=== PATIENT | female | born 1970 | race Caucasian/White ===

== ENCOUNTER 2020-06-08 23:27 | Emergency (ER) | payer BC, OTHER, SELFPAY ==
--- NOTE | ~2020-06-08 | CT_ITS ---
EXAMINATION: CT abdomen pelvis wo con DATE: 06/09/2020 00:12 INDICATION: Right flank pain TECHNIQUE: Computed tomography (CT) of the abdomen and pelvis was performed without intravenous contr ast. The dose-length product (DLP) was 625.15 mGy-cm. Automated exposure control and iterative recons truction technique were employed. COMPARISON: None FINDINGS: The lung bases are clear. The heart size is normal. There is an 8 mm cyst of the liver dome . The spleen, pancreas, gallbladder, and adrenal glands are normal. The left kidney is unremarkable. There is a 6 mm stone in the proximal right ureter which causes moderate hydronephrosis. No additiona l urolithiasis is identified. No pathologically enlarged abdominal or pelvic lymph nodes are identifi ed. There is no free intraperitoneal gas or evidence of bowel obstruction. The appendix is normal. Th ere is mild lumbar spondylosis. IMPRESSION: 1. 6 mm stone of the proximal right ureter which causes moderate hydronephrosis. Reviewed, dictated and finalized at location A. COLOR PRESS OPERATOR IMPRESSION: 1. 6 mm stone of the proximal right ureter which causes moderate hydronephrosis .
[2020-06-08 23:31] VITALS: BP 160/86; PULSE 108; RESP 18; TEMP 36.4; O2SAT 100
--- NOTE | 2020-06-08 23:46 | ED.GENADULT ---
HPI - General Adult General Chief complaint: Abdominal Pain Stated complaint: flank pain Time Seen by Provider: 06/08/20 23:40 History of Present Illness HPI narrative: Patient is a 49-year-old female who presents to the emergency department with chief complaint of right inguinal pain and right flank pain. The patient states the pain began suddenly this evening reports that is not worsened by anything and spontaneously improved while she was on her way to the emergency department. The patient reports she has had some vomiting with it denies fever reports that she has had decreased urine output since this occurred. Patient states that she has no prior history of kidney stones denies prior medical problems denies prior surgical history denies smoking. Related Data Allergies Allergy/AdvReac Type Severity Reaction Status Date / Time cefprozil Allergy Severe UNKNOWN Verified 10/28/18 09:01 amoxicillin AdvReac Intermediate WORSENING Verified 10/28/18 09:01 SYMPTOMS Review of Systems Review of Systems: Narrative: A 10 system review of systems was completed on the patient and is negative except for what is stated in the HPI. Nursing and ancillary documentation was reviewed. PMFSH Social History Social History Gender identity (if verbalized by the patient): Female Comments Patient has negative past medical history Patient is negative past surgical history Social history the patient denies smoking Exam Narrative: Exam Narrative: GENERAL: Well-appearing, well-nourished, and in no acute distress. HEAD: Normocephalic, atraumatic. EYES: PERRLA and EOMI. ENT: Nares clear, no rhinorrhea or epistaxis. Mucous membranes moist. NECK: Supple. CHEST: Clear to auscultation. No respiratory distress. HEART: Regular rate and rhythm. No murmur heard. Normal peripheral pulses. ABDOMEN: Soft, nontender, nondistended, normal active bowel sounds. EXTREMITIES: Normal range of motion. No edema. SKIN: Warm, dry, no rash. NEURO: No focal deficits. Alert and oriented x3. PSYCH: Normal mood and affect. Course Vital Signs Vital signs: Vital Signs Temperature 36.4 C L 06/08/20 23:31 Pulse Rate 108 H 06/08/20 23:31 Respiratory Rate 18 06/08/20 23:31 Blood Pressure 160/86 H 06/08/20 23:31 Pulse Oximetry 100 06/08/20 23:31 Temperature 36.4 C L 06/08/20 23:31 Pulse Rate 108 H 06/08/20 23:31 Respiratory Rate 18 06/08/20 23:31 Blood Pressure 160/86 H 06/08/20 23:31 Pulse Oximetry 100 06/08/20 23:31 Medical Decision Making Vital Signs Vital Signs: Vital Signs Temperature 36.4 C L 06/08/20 23:31 Pulse Rate 108 H 06/08/20 23:31 Respiratory Rate 18 06/08/20 23:31 Blood Pressure 160/86 H 06/08/20 23:31 Pulse Oximetry 100 06/08/20 23:31 Temperature 36.4 C L 06/08/20 23:31 Pulse Rate 108 H 06/08/20 23:31 Respiratory Rate 18 06/08/20 23:31 Blood Pressure 160/86 H 06/08/20 23:31 Pulse Oximetry 100 06/08/20 23:31 Lab Data Result diagrams: 06/08/20 23:55 06/08/20 23:55 Labs: Lab Results 06/08/20 06/08/20 Range/Units 23:55 23:55 WBC 14.0 H (4.5-10.0) K/mm3 RBC 4.85 (4.2-5.4) M/mm3 Hgb 13.3 (12.0-15.0) g/dL Hct 40.3 (37.0-47.0) % MCV 83.1 (80-100) fl MCH 27.4 (26-34) pg MCHC 33.0 (32-36) g/dl RDW 13.2 (11.5-14.5) % Plt Count 352 (150-375) k/mm3 MPV 9.4 (7.4-10.4) fl Immature Gran % (Auto) 0.4 (0-0.5) % Neut % (Auto) 78.5 H (45.5-73.1) % Lymph % (Auto) 13.9 L (18.3-44.2) % [place] % (Auto) 6.7 (2.6-8.5) % Eos % (Auto) 0.1 (0-4.4) % Baso % (Auto) 0.4 (0.2-1.2) % Lymph # (Auto) 1.94 (0.9-3.2) K/mm3 [place] # (Auto) 0.9 H (0.1-0.6) K/mm3 Eos # (Auto) 0.0 (0-0.3) K/mm3 Baso # (Auto) 0.1 (0.0-0.1) K/mm3 Abs Immat Gran (auto) 0.06 H (0.00-0.031) K/mm3 Absolute Neuts (auto) 11.0 H (1.3-6.7) K/mm3 Absolute Nucleated RBC 0.0 (0.0-0.012) K/mm3 Nucleated RBC
[2020-06-08] MEDS: KETOROLAC 30 MG/ML VIAL (*BKC) IV PUSH (23:56)
[2020-06-08] MEDS: MORPHINE SULFATE (*CRX) 4 MG/ML INJ IV PUSH (23:57)
[2020-06-08] MEDS: ONDANSETRON INJ 4 MG/2 ML VIAL IV PUSH (23:58)
[2020-06-08] MEDS: SODIUM CHLORIDE 0.9% IV 1,000 ML 999 ML IV CONT (23:58)
--- NOTE | 2020-06-09 | PC.NURSE ---
Pt. unable to void at this time.
[2020-06-09 00:01] LABS: Basophils Absolute Auto 0.1 K/mm3 (0.0-0.1); Basophils Percent Auto 0.4 % (0.2-1.2); Eosinophils Percent Auto 0.1 % (0-4.4); Hematocrit 40.3 % (37.0-47.0); Hemoglobin 13.3 g/dL (12.0-15.0); Immature Granulocyte Absolute 0.06 K/mm3 (0.00-0.031); Immature Granulocyte Percent A 0.4 % (0-0.5); Lymphocytes Absolute Auto 1.94 K/mm3 (0.9-3.2); Lymphocytes Percent Auto 13.9 % (18.3-44.2); Mean Corpuscular Hemoglobin 27.4 pg (26-34); Mean Corpuscular Volume 83.1 fl (80-100); Mean Platelet Volume 9.4 fl (7.4-10.4); Monocytes Absolute Auto 0.9 K/mm3 (0.1-0.6); Monocytes Percent Auto 6.7 % (2.6-8.5); Neutrophils Percent Auto 78.5 % (45.5-73.1); Platelet Count Result 352 k/mm3 (150-375); Red Blood Count 4.85 M/mm3 (4.2-5.4); Red Cell Distribution Width 13.2 % (11.5-14.5)
--- NOTE | 2020-06-09 00:06 | PC.NURSE ---
Pt. to CT
[2020-06-09 00:13] LABS: Alanine Aminotransferase 23 U/L (4-35); Albumin Level 4.3 g/dL (3.5-5.1); Alkaline Phosphatase 116 U/L (38-126); Anion Gap 7 mmol/L (8-16); Aspartate Amino Transferase 29 U/L (14-36); Bilirubin,Total 0.3 mg/dL (0.2-1.3); Blood Urea Nitrogen 13 mg/dL (7-17); Calcium 9.2 mg/dL (8.4-10.2); Carbon Dioxide 23 mmol/L (22-30); Chloride 107 mmol/L (98-107); Estimated CRCL calculation 79 ml/min; Estimated Glomerular Filt Rate > 60; Glucose 131 mg/dL (65-105); Lipase 96 U/L (23-300); Potassium 4.1 mmol/L (3.4-5.0); Sodium 137 mmol/L (137-145)
--- NOTE | 2020-06-09 00:35 | PC.NURSE ---
Asked patient at 00:30 if she could provide a urine sample, she said not right now maybe in 5 to 10 minutes.
[2020-06-09 00:54] VITALS: BP 125/74; PULSE 78; RESP 14; O2SAT 97
[2020-06-09 01:38] LABS: Add Urine Microscopic? YES; Appearance Urine Turbid (Clear); Bacteria Urine Trace /hpf; Bilirubin Urine Negative (Negative); Blood Urine 3+ (Negative); Color Urine Amber (Yellow); Glucose Urine UA Negative (Negative); Ketones Urine Trace mg/dL (Negative); Leukocyte Esterase Ur Negative LEU/UL (Negative); Mucus Urine Heavy /lpf; Nitrate Urine Negative (Negative); Protein Urine 2+ mg/dL (Negative); RBC Urine >75 /hpf (0-2); Specific Grav Ur 1.024 (1.001-1.035); Squamous Epithelial Cell Urine Occasional /hpf (Few)
== END 2020-06-09 00:56 | disposition home or self-care (01) ==
PROVIDERS: Emergency Provider Emergency Medicine; PCP Family Medicine
DX: N20.0 Calculus of kidney (principal)
CPT/HCPCS: 36415; 74176; 80053; 81001; 83690; 85025; 87086; 96361; 96374; 96375; 99284; J1885; J2270; J2405; J7030

== ENCOUNTER 2020-06-09 11:16 | Outpatient (CLI) | payer BC, OTHER, SELFPAY ==
--- NOTE | ~2020-06-09 | XR_ITS ---
XR abdomen/kub 1V DATE: 06/09/2020 11:31 INDICATION: 6 non or proximal right ureteral calculus, moderate right hydronephrosis TECHNIQUE: AP projection, 2 views COMPARISON: June 08, 2020 CT abdomen pelvis FINDINGS: Previously reported 6 mm calculus overlies the proximal right ureter at the L3-4 level. No other urinary tract calcification is evident. Associated are intact. No visceromegaly is evident. The lung bases appear clear. No evidence of bowel obstruction. Included skeletal structures are unremarkable. IMPRESSION: 6 mm calcified calculus of proximal right ureter at L3-4 level Reviewed, dictated and finalized at Location A. Reviewed, dictated and finalized at location B. ING GUIDE
== END 2020-06-09 11:17 | disposition home or self-care (01) ==
PROVIDERS: PCP Family Medicine; Visit Provider Urology
DX: N20.1 Calculus of ureter (principal)
CPT/HCPCS: 74018

== ENCOUNTER 2020-06-12 06:37 | Outpatient (CLI) | payer BC, OTHER, SELFPAY ==
--- NOTE | ~2020-06-12 | XR_ITS ---
XR abdomen/kub 1V DATE: 06/12/2020 06:59 INDICATION: Right ureteral calculus TECHNIQUE: AP projection, 2 views COMPARISON: June 09, 2020 KUB FINDINGS: Previously reported approximately 6 mm calcified calculus currently overlies the right L4 t ransverse process. This has progressed a little further distally in the right ureter from the L3-4 le tono on June 09, 2020. There is a prominent amount of fecal material within the colon but no apparent bowel obstruction. The psoas shadows are intact. No visceromegaly is evident. IMPRESSION: Calcified right ureteral calculus at mid L4 level Reviewed, dictated and finalized at [facility]. Reviewed, dictated and finalized at location A. T OIL OPERATOR
== END 2020-06-12 06:38 | disposition home or self-care (01) ==
PROVIDERS: PCP Family Medicine; Visit Provider Urology
DX: N20.1 Calculus of ureter (principal)
CPT/HCPCS: 74018

== ENCOUNTER 2020-06-30 12:26 | Outpatient (CLI) | payer BC, OTHER, SELFPAY ==
--- NOTE | ~2020-06-30 | XR_ITS ---
EXAMINATION: XR abdomen/kub 1V INDICATION: Right ureteral stone TECHNIQUE: Supine views of the abdomen were obtained on 2 radiographs. COMPARISON: 06/12/2020 FINDINGS: The previously described right ureteral stone appears to project at the level of the right L5 transverse process. No additional urolithiasis is identified. There is a phlebolith of the right p dex. The bowel gas pattern is normal. IMPRESSION: 1. Previously described stone appears to project over the right L5 transverse process. Reviewed, dictated and finalized at location A. BUILDER APPRENTICE IMPRESSION: 1. Previously described stone appears to project over the right L5 transverse p rocess.
== END 2020-06-30 12:27 | disposition home or self-care (01) ==
PROVIDERS: PCP Family Medicine; Visit Provider Urology
DX: N20.1 Calculus of ureter (principal)
CPT/HCPCS: 74018

== ENCOUNTER 2020-12-03 11:49 | Observation (INO) | payer BC, OTHER, SELFPAY ==
--- NOTE | ~2020-12-03 | US_ITS ---
EXAMINATION: US pelvic complete DATE: 12/03/2020 14:57 INDICATION: Vaginal bleeding TECHNIQUE: Multiple transabdominal sonographic images of the pelvis were obtained. COMPARISON: None. FINDINGS: The uterus measures 8.1 x 3.6 x 3.9 cm. The endometrial complex not clearly visualized. The ovaries are not visualized. No evident free fluid in the pelvis. Incomplete evaluation which was terminated p rematurely with the patient returned to the emergency room due to patient feeling faint and hypotensi ve with blood pressure of 66/40. IMPRESSION: 1. Unremarkable but incomplete pelvic ultrasound which was halted due to hypotensive episode. Reviewed, dictated and finalized at location A. IMPRESSION: 1. Unremarkable but incomplete pelvic ultrasound which was halted due to hypote nsive episode.
--- NOTE | ~2020-12-03 | XR_ITS ---
EXAMINATION: XR chest 2V DATE: 12/03/2020 14:26 INDICATION: Tachycardia TECHNIQUE: PA and lateral views of the chest are obtained. COMPARISON: None available FINDINGS: The lungs are free of acute opacities. There is no pleural effusion or pneumothorax. The ca rdiomediastinal silhouette is normal. There is mild thoracic spondylosis. IMPRESSION: 1. No acute cardiopulmonary abnormality. Reviewed, dictated and finalized at location A.
[2020-12-03 11:50] VITALS: BP 140/82; PULSE 140; RESP 18; TEMP 36.3; O2SAT 99
[2020-12-03 12:23] LABS: Basophils Absolute Auto 0.1 K/mm3 (0.0-0.1); Basophils Percent Auto 0.5 % (0.2-1.2); Eosinophils Absolute Auto 0.1 K/mm3 (0-0.3); Eosinophils Percent Auto 0.7 % (0-4.4); Hematocrit 38.8 % (37.0-47.0); Immature Granulocyte Absolute 0.03 K/mm3 (0.00-0.031); Immature Granulocyte Percent A 0.3 % (0-0.5); Lymphocytes Absolute Auto 2.81 K/mm3 (0.9-3.2); Lymphocytes Percent Auto 26.3 % (18.3-44.2); Mean Corpuscular HGB Conc 33.5 g/dl (32-36); Mean Corpuscular Hemoglobin 27.2 pg (26-34); Mean Corpuscular Volume 81.2 fl (80-100); Mean Platelet Volume 9.3 fl (7.4-10.4); Monocytes Absolute Auto 0.7 K/mm3 (0.1-0.6); Monocytes Percent Auto 6.9 % (2.6-8.5); Neutrophils Percent Auto 65.3 % (45.5-73.1); Platelet Count Result 380 k/mm3 (150-375); Red Blood Count 4.78 M/mm3 (4.2-5.4); Red Cell Distribution Width 12.8 % (11.5-14.5); White Blood Count 10.7 K/mm3 (4.5-10.0)
[2020-12-03 12:38] LABS: INR 0.9; Prothrombin Time 12.2 Seconds (11.1-14.7)
[2020-12-03 12:39] LABS: Partial Thromboplastin Time 26.4 SECONDS (22.3-36.8)
[2020-12-03 12:53] LABS: Alanine Aminotransferase 20 U/L (4-35); Albumin Level 4.3 g/dL (3.5-5.1); Alkaline Phosphatase 165 U/L (38-126); Anion Gap 6 mmol/L (8-16); Aspartate Amino Transferase 26 U/L (14-36); Bilirubin,Total 0.1 mg/dL (0.2-1.3); Blood Urea Nitrogen 11 mg/dL (7-17); Calcium 9.4 mg/dL (8.4-10.2); Carbon Dioxide 22 mmol/L (22-30); Chloride 104 mmol/L (98-107); Estimated CRCL calculation 78 ml/min; Estimated Glomerular Filt Rate > 60; Glucose 176 mg/dL (65-110); Lipase 129 U/L (23-300); Potassium 3.8 mmol/L (3.4-5.0); Sodium 132 mmol/L (137-145)
--- NOTE | 2020-12-03 14:10 | ECG_ITS ---
Measurements Intervals [place] Rate: 94 P: 44 NM: 144 QRS: 35 QRSD: 73 T: 48 QT: 344 QTc: 431 Interpretive Statements SINUS RHYTHM BASELINE ARTIFACT- II, III, AVR, AVL, AVF, V1-V6 NORMAL ECG Electronically Signed On 12-03-2020 17:42:45 CDT by Dylan Martinez D.O.
--- NOTE | 2020-12-03 14:14 | ED.GENADULT ---
HPI - General Adult General Chief complaint: Vaginal Bleeding Stated complaint: UTERINE BLEEDING Time Seen by Provider: 12/03/20 12:36 Source: patient Mode of arrival: ambulatory Limitations: no limitations History of Present Illness HPI narrative: Patient presents for evaluation of vaginal bleeding. She states symptoms essentially became severe on of this past week. She is currently on hormone therapy and has been followed for last [address] Gavin, endocrinology. She initially sought services due to decreased libido and increased fatigue. She is normally on what sounds to be pellet therapy for estrogen and testosterone replacement as well as oral progesterone. She states she was getting ready to run out of progesterone in October. She called her phototypesetter operator who advised she cut her progesterone in half so that she would not run out of the medication. She did that for one day and then replenished her supply of progesterone. Therefore, she was able to resume previous dosing. She had some vaginal discharge for one day following this and some vaginal bleeding for 3-4 days. She saw her phototypesetter operator on and experienced heavy vaginal bleeding in the office. Dr Gavin told her that she was not going to replace estrogen at that time. She did replace her testosterone and was told to continue with progesterone therapy. Since that time she has gone through a tampon and a pad every hour. She is passing large clots vaginally. On Friday, she had a near syncopal episode while on the bathroom floor. She had another episode of near syncope last night. She has experienced palpitations for weeks, but denies them currently. She has experienced hot flashes without chills, chest pain or SOB. She denies any abdominal pain/cramping. She is not on blood thinners. She had two alcohol-containing beverages this past week. She is currently on [place] Thyroid and several supplements. She currently feels nauseated. She has some labs in her possession from lab draw on 11/17/20. At that time triglycerides were 196, LDL 101, CRP 5.2, homocystine 5.0, alk phos 158, TSH less than 0.01, free T4 1.4, dihydrotestosterone 8, hemoglobin 14.3, hematocrit 44, cortisol 11.1, FSH 1.3, LH 0.3, progesterone 4 and estradiol 130. Related Data Allergies Allergy/AdvReac Type Severity Reaction Status Date / Time cefprozil Allergy Severe UNKNOWN Verified 12/03/20 11:56 amoxicillin AdvReac Intermediate WORSENING Verified 12/03/20 11:56 SYMPTOMS Review of Systems Review of Systems: CONSTITUTIONAL: Reports hot flashes and fatigue. Denies fever and chills. EYES: Denies visual changes, redness, or discharge. ENT: Denies rhinorrhea, congestion, sore throat, or otalgia. CARDIOVASCULAR: Denies chest pain, palpitations, or edema. RESPIRATORY: Denies cough or dyspnea. GASTROINTESTINAL: Reports nausea without vomiting. Denies abdominal pain and diarrhea. GENITOURINARY: Reports dark vaginal discharge. Reports vaginal bleeding with passing large clots. Denies urinary symptoms. SKIN: Denies rash or itching. MUSCULOSKELETAL: Denies back pain, joint pain, or myalgia. NEUROLOGIC: Denies headache, numbness, dizziness, or weakness. PSYCHIATRIC: Denies anxiety or depression. [facility] Past Medical History Medical History Anxiety Chronic fatigue Depression Thyroid disease Family History Family History (Updated 12/03/20 @ 14:26 by VANESSA Moore, ) Mother No pertinent past medical history Social History Social History (Updated 12/03/20 @ 14:26 by VANESSA Moore, ) Alcohol intake: current Alcohol use details: rarely Substance use: never Living arrangements: with family Gender identity (if verbalized by the patient): Female Sexual Orientation (if Verbalized by the Patient): Straight or Heterosexual Spiritual care concerns: No Exam Narrative: GENERAL: Well-donna
[2020-12-03 14:46] VITALS: BP 98/66; PULSE 89; RESP 27; O2SAT 98
[2020-12-03] MEDS: SODIUM CHLORIDE 0.9% IV 1,000 ML 999 ML IV CONT ×3 (14:46→15:13)
[2020-12-03 15:19] LABS: D Dimer 0.42 ug/mL (<0.48)
[2020-12-03 15:26] VITALS: BP 117/80; PULSE 97; RESP 23; O2SAT 100
[2020-12-03 15:29] LABS: Lactic Acid Reflex 1.7 mmol/L (0.7-2.1)
[2020-12-03 15:42] LABS: Troponin I 0.014 ng/mL (0.000-0.034)
[2020-12-03 16:00] LABS: Thyroid Stimulating Hormone < 0.015 uIU/mL (0.465-4.680)
[2020-12-03 16:47] LABS: Basophils Absolute Auto 0.1 K/mm3 (0.0-0.1); Basophils Percent Auto 0.5 % (0.2-1.2); Eosinophils Absolute Auto 0.1 K/mm3 (0-0.3); Eosinophils Percent Auto 0.6 % (0-4.4); Hematocrit 36.6 % (37.0-47.0); Hemoglobin 11.7 g/dL (12.0-15.0); Immature Granulocyte Absolute 0.02 K/mm3 (0.00-0.031); Immature Granulocyte Percent A 0.2 % (0-0.5); Lymphocytes Absolute Auto 3.12 K/mm3 (0.9-3.2); Mean Corpuscular Hemoglobin 27.5 pg (26-34); Mean Corpuscular Volume 85.9 fl (80-100); Mean Platelet Volume 10.1 fl (7.4-10.4); Monocytes Absolute Auto 0.7 K/mm3 (0.1-0.6); Monocytes Percent Auto 6.5 % (2.6-8.5); Neutrophils Absolute Auto 6.2 K/mm3 (1.3-6.7); Neutrophils Percent Auto 61.2 % (45.5-73.1); Platelet Count Result 362 k/mm3 (150-375); Red Blood Count 4.26 M/mm3 (4.2-5.4); Red Cell Distribution Width 13.1 % (11.5-14.5); White Blood Count 10.1 K/mm3 (4.5-10.0)
[2020-12-03 17:01] LABS: Add Urine Microscopic? YES; Appearance Urine Cloudy (Clear); Bilirubin Urine Negative (Negative); Blood Urine 3+ (Negative); Color Urine Red (Yellow); Glucose Urine UA Negative (Negative); Ketones Urine Negative (Negative); Leukocyte Esterase Ur Negative LEU/UL (Negative); Nitrate Urine Negative (Negative); Protein Urine 2+ mg/dL (Negative); RBC Urine >75 /hpf (0-2); Specific Grav Ur 1.006 (1.001-1.035); Squamous Epithelial Cell Urine Rare /hpf (Few); Urobilinogen Urine Negative mg/dL (<2.0)
[2020-12-03 17:03] LABS: Free T4 Free Thyroxine 1.29 ng/mL (0.78-2.19)
[2020-12-03] MEDS: TRANEXAMIC ACID 1,000MG/ISO100 1,000 MG/100 ML BAG 200 MG IVPB (18:31)
[2020-12-03] MEDS: SODIUM CHLORIDE 0.9% IV 1,000 ML 125 ML IV CONT (18:54)
[2020-12-03 18:57] LABS: Hematocrit 32.3 % (37.0-47.0); Hemoglobin 10.5 g/dL (12.0-15.0)
[2020-12-03 19:17] VITALS: BP 122/78; PULSE 102; RESP 16; O2SAT 98
[2020-12-03 19:27] LABS: Troponin I < 0.012 ng/mL (0.000-0.034)
[2020-12-03 20:00] VITALS: PULSE 97
[2020-12-03 22:30] VITALS: BP 127/83; PULSE 107; RESP 18; TEMP 36.3; O2SAT 98; BMI 28.0
--- NOTE | 2020-12-03 22:53 | PM.IMCN ---
Assessment and Plan Assessment and plan (1) Abnormal uterine bleeding: Code(s): N93.9 - Abnormal uterine and vaginal bleeding, unspecified Status: Acute (2) Anxiety: Code(s): F41.9 - Anxiety disorder, unspecified Status: Acute (3) Depression: Code(s): F32.9 - Major depressive disorder, single episode, unspecified Status: Acute (4) Chronic fatigue: Code(s): R53.82 - Chronic fatigue, unspecified Status: Acute (5) Thyroid disease: Code(s): E07.9 - Disorder of thyroid, unspecified Status: Acute (6) Constipation: Code(s): K59.00 - Constipation, unspecified Status: Acute (7) Abnormal TSH: Code(s): R79.89 - Other specified abnormal findings of blood chemistry Status: Acute Additional Plan # Vaginal bleeding unknown source working second hand to evaluate. Pelvic ultrasound could not be completed but does not show any abnormality transexamic acid 1 gm given to control the bleeding. # Hypotension likely due to hypovolemia from ongoing vaginal bleed. H&H monitoring. With fluid resuscitation her blood pressure has recovered. If drops should transfuse her PRBC for acute ongoing bleed # Abnormal TSH with thyroid peroxidase antibody suggestive of autoimmune thyroiditis/Thomas's thyroiditis. Currently TSH is low suggesting hyper thyroid state. She has been on [place] thyroid will currently hold are more thyroid and advise to follow-up with endocrinology for further direction. She states symptoms have started since starting these new supplement however not able to conclude that. # Blood loss anemia as above # Chronic fatigue syndrome # Severe angelo menopausal syndrome on hormonal therapy estrogen/progesterone # DVT prophylaxis SCDs # Full code Thank you for the consult. Will follow HPI Data of Consult Consult date: 12/03/20 Requesting Physician: Shraddha Garcia MD Primary Care Provider: Teena Del Cid, Consult Narrative Narrative: Suzie Ruth is a 50 year old female who presents to the ER with ongoing vaginal bleed. The bleeding started over the past week or so however got severely worse this past when see need to constantly change her pad and tampons almost every hour. She is getting admitted under OBGYN for further treatment. Pelvic exam was attempted but was unable to be accomplished due to large amount of blood in the vaginal vault per ED note. She has been given tranexamic acid 1 gm in the ED. She was evaluated with an ultrasound off pelvis were she was taken to the ultrasound room which was unable to be completed as her blood pressure dropped to 60s over 40s and was brought her back to the ED. She has been given fluid boluses since then and has recovered on her blood pressure. She states that when she was sat up while performing the ultrasound her blood pressure dropped and she felt like she was going to pass out/black out. We were consulted for her hypotension. Laboratory evaluation in the ER revealed hemoglobin of 11.7 down from 13. Mild WBC count of 10.1 negative guaiac negative D-dimer mild hyponatremia of 132. Her TSH is less than 0.015 free T4 is within normal limits at 1.29. Chest x-ray was negative. Pelvic ultrasound was unremarkable but incomplete. She was evaluated with in her bedside. She states she has chronic fatigue syndrome related to history of Pedro [place]-Peña virus infection in the past. She a also had severe symptoms of perimenopause with early menopausal symptoms started in age of 39. She has been placed on hormonal therapy since then and has been following with Dr. Gavin Endocrinology. She states she gets a pellet therapy for estrogen and testosterone replacement which is implanted in her hips along with oral progesterone. She had not had any. Because of this hormonal therapy since past 11 years. She will get an all pelvic ultrasound with her spring inspector and has been doing okay. She also has a diagnosis
[2020-12-04] MEDS: SODIUM CHLORIDE 0.9% IV 1,000 ML 125 ML IV CONT (04:01)
[2020-12-04 05:48] VITALS: BP 122/66; PULSE 97; RESP 18; TEMP 37.1; O2SAT 98
[2020-12-04 07:13] LABS: Basophils Percent Auto 0.4 % (0.2-1.2); Eosinophils Absolute Auto 0.1 K/mm3 (0-0.3); Eosinophils Percent Auto 0.6 % (0-4.4); Hematocrit 29.1 % (37.0-47.0); Hemoglobin 9.8 g/dL (12.0-15.0); Immature Granulocyte Absolute 0.04 K/mm3 (0.00-0.031); Immature Granulocyte Percent A 0.4 % (0-0.5); Lymphocytes Absolute Auto 2.79 K/mm3 (0.9-3.2); Lymphocytes Percent Auto 26.9 % (18.3-44.2); Mean Corpuscular HGB Conc 33.7 g/dl (32-36); Mean Corpuscular Hemoglobin 27.8 pg (26-34); Mean Corpuscular Volume 82.7 fl (80-100); Mean Platelet Volume 9.1 fl (7.4-10.4); Monocytes Absolute Auto 0.6 K/mm3 (0.1-0.6); Monocytes Percent Auto 5.8 % (2.6-8.5); Neutrophils Absolute Auto 6.8 K/mm3 (1.3-6.7); Neutrophils Percent Auto 65.9 % (45.5-73.1); Platelet Count Result 310 k/mm3 (150-375); Red Blood Count 3.52 M/mm3 (4.2-5.4); Red Cell Distribution Width 13.2 % (11.5-14.5); White Blood Count 10.4 K/mm3 (4.5-10.0)
[2020-12-04 08:00] VITALS: PULSE 100
--- NOTE | 2020-12-04 08:00 | PM.IMHP ---
H&P: HPI History of Present Illness Date/Time: 12/04/20 08:00 Chief Complaint: vaginal bleeding Narrative: Suzie Ruth is a 50 year old female who presents to the ER with heavy vaginal bleed. The bleeding started over the past week or so however got severely worse this past when see need to constantly change her pad and tampons almost every hour. SHe has been on estrogen and testosterone pellets and oral progesterone for about [address] Gavin in [facility] who does pellets. Recently estrogen ones were stopped due to this bleeding episode starting. SHe is unsure of her menopause status because she had two years of just spotting in her mid 30s before starting pellets, she has had years of not bleeding on them, but also several episodes of light bleeding on them. This was the first episode of heavy bleeding. It started on , then got worse over the weekend, so presented to ED. She was evaluated with an ultrasound of pelvis were she was taken to the ultrasound room which was unable to be completed as her blood pressure dropped to 60s over 40s and was brought her back to the ED. Ovaries and endometrial stripe not completed on the US. Pelvic US per ED revealed only heavy bleeding. Started tranexamic acid in ED (IV) and she states the last 6 hours or so the bleeding has been very minimal. She was last up to bathroom 3 hours ago and states only very light bleeding, almost nothing. Hgb from 13 to 11.7 to 9.8 this am. She has ambulated without dizziness today. Also has hypothyroid, recently had meds changed around for this. Review of Systems Review of Systems: All systems reviewed & are unremarkable except as noted in HPI and below PMFSH Past Medical History Medical History Anxiety Chronic fatigue Depression Thyroid disease Family History Family History (Updated 12/03/20 @ 14:26 by VANESSA Moore, ) Mother No pertinent past medical history Social History Social History (Updated 12/03/20 @ 14:26 by VANESSA Moore, ) Smoking status: Never smoker Alcohol intake: current Alcohol use details: rarely Substance use: never Substance use type: does not use Living arrangements: with family Gender identity (if verbalized by the patient): Female Sexual Orientation (if Verbalized by the Patient): Straight or Heterosexual Spiritual care concerns: No Meds Home Medications and Allergies Home Medications Medication Instructions Recorded Confirmed Type Adult Nutritional Supplement See Rx Instructions .ROUTE .COMPLEX 12/03/20 12/03/20 History Adult Nutritional Supplement See Rx Instructions .ROUTE .COMPLEX 12/03/20 12/03/20 History Adult Nutritional Supplement See Rx Instructions .ROUTE .COMPLEX 12/03/20 12/03/20 History Adult Nutritional Supplement See Rx Instructions .ROUTE .COMPLEX 12/03/20 12/04/20 History Adult Nutritional Supplement See Rx Instructions .ROUTE .COMPLEX 12/03/20 12/04/20 History Allergy Relief (cetirizine) 10 mg PO DAILY 12/03/20 12/04/20 History [place] Thyroid 180 mg PO QAM 12/03/20 12/04/20 History Progesterone-50 150 mg PO HS 12/03/20 12/03/20 History Yonathan-E 200 mg PO DAILY 12/03/20 12/03/20 History Vitamin D3 25 mcg PO DAILY 12/03/20 12/04/20 History amitriptyline 50 mg PO HS 12/03/20 12/03/20 History escitalopram oxalate 10 mg PO DAILY 12/03/20 12/03/20 History estradiol-testosterone See Rx Instructions .ROUTE .COMPLEX 12/03/20 12/04/20 History omeprazole 20 mg PO DAILY 12/03/20 12/04/20 History spironolactone 100 mg PO DAILY 12/03/20 12/04/20 History Allergies Allergy/AdvReac Type Severity Reaction Status Date / Time cefprozil Allergy Severe UNKNOWN Verified 12/03/20 11:56 amoxicillin AdvReac Intermediate WORSENING Verified 12/03/20 11:56 SYMPTOMS Vital Signs Vital Signs - 24 hr 12/03/20 11:50 12/03/20 14:46 12/03/20 15:26 Temperature 97.3 F L Pulse Rate 140 H 89 97 Respi
[2020-12-04 08:05] VITALS: PULSE 97
--- NOTE | 2020-12-04 08:27 | PM.DS ---
DS: Admitting Diagnosis Admitting Diagnosis vaginal bleeding DS: Discharge Diagnosis Discharge Diagnosis (1) Acute blood loss anemia: Code(s): D62 - Acute posthemorrhagic anemia Status: Acute (2) Abnormal uterine bleeding: Code(s): N93.9 - Abnormal uterine and vaginal bleeding, unspecified Status: Acute (3) Abnormal TSH: Code(s): R79.89 - Other specified abnormal findings of blood chemistry Status: Acute DS: Summary Hospital Course Reason for hospitalization: hypotension with acute blood loss Hospital Course: Pt presented to the ED with heavy vaginal bleeding and dropped Hgb from 13 to 11 to 9.8. She received IV fluids and IV tranexamic acid and hypotension resolved and bleeding drastically improved. She received a hospitalist consult for thyroid issues and hypotension. She was stable for DC on HD #1. Status at Discharge Functional status at discharge: independent ambulation Overall status at discharge: patient is progressing back to baseline Time Spent with Patient Time attestation: Total time spent providing and/or coordinating discharge services: Time spent: Less than 30 minutes Exam Const: General: no acute distress Resp: Effort & Inspection: normal respiratory effort Auscultation: clear to auscultation bilaterally Cardio: Rate: tachycardic Rhythm: regular rhythm GI: GI Palp: Yes Soft to palpation Skin: General skin exam: normal color Extrem: General: normal to inspection Psych: Mental Status: mental status grossly normal Affect: normal affect DS: Data Data Completed and Pending Labs on day of discharge: Labs from last 24 hours 12/04/20 12/04/20 12/04/20 06:50 06:50 06:50 WBC 10.4 H RBC 3.52 L Hgb 9.8 L Cancelled Hct 29.1 L Cancelled MCV 82.7 MCH 27.8 MCHC 33.7 RDW 13.2 Plt Count 310 MPV 9.1 Immature Gran % (Auto) 0.4 Neut % (Auto) 65.9 Lymph % (Auto) 26.9 [place] % (Auto) 5.8 Eos % (Auto) 0.6 Baso % (Auto) 0.4 Lymph # (Auto) 2.79 [place] # (Auto) 0.6 Eos # (Auto) 0.1 Baso # (Auto) 0.0 Abs Immat Gran (auto) 0.04 H Absolute Neuts (auto) 6.8 H Absolute Nucleated RBC 0.0 Nucleated RBC % 0.0 PT INR APTT D-Dimer Sodium Pending Potassium Pending Chloride Pending Carbon Dioxide Pending Anion Gap Pending BUN Pending Creatinine Pending Estim Creat Clear Calc Pending Estimated GFR Pending Glucose Pending Lactic Acid Calcium Pending Total Bilirubin Pending AST Pending ALT Pending Alkaline Phosphatase Pending Troponin I Total Protein Pending Albumin Pending Lipase TSH Free T4 Urine Color Urine Appearance Urine pH Ur Specific [place] Urine Protein Urine Glucose (UA) Urine Ketones Ur Blood (Man) Urine Nitrate Urine Bilirubin Urine Urobilinogen Leukocyte Esterase Rfl Urine RBC Urine WBC Ur Squamous Epith Cells Blood Type Antibody Screen 12/03/20 12/03/20 12/03/20 18:48 18:48 16:35 WBC RBC Hgb 10.5 L Hct 32.3 L MCV MCH MCHC RDW Plt Count MPV Immature Gran % (Auto) Neut % (Auto) Lymph % (Auto) [place] % (Auto) Eos % (Auto) Baso % (Auto) Lymph # (Auto) [place] # (Auto) Eos # (Auto) Baso # (Auto) Abs Immat Gran (auto) Absolute Neuts (auto) Absolute Nucleated RBC Nucleated RBC % PT INR APTT D-Dimer Sodium Potassium Chloride Carbon Dioxide Anion Gap BUN Creatinine Estim Creat Clear Calc Estimated GFR Glucose Lactic Acid Calcium Total Bilirubin AST ALT Alkaline Phosphatase Troponin I < 0.012 Total Protein Albumin Lipase TSH Free T4 Urine Color Red H Urine Appearance Cloudy H Urine pH 6.0 Ur Specific [place] 1.006 Urine Protein 2+ H Urine Glucose (UA)
--- NOTE | 2020-12-04 08:29 | ADMGEN ---
This patient, Suzie Ruth, was admitted to [facility] Surg Room 307-02. Patient/family oriented to hospital policies and general routines including ID bracelet, bed and alarms, visiting hours, pain management, procedures, bathroom and other care routines, personal items, smoking policy, room service/diet, and visiting hours. Information on how to activate the Rapid Response Team has been discussed. Patient/Family are encouraged to report perceived risks to care and to ask questions if they do not understand what they are told or what they should do. Patient was plesant and cooperative through the admission process teaching back on hospital policy, call light use, medication scheduling and testing. There was no midnight H&H so lab was called at 0540. They requested that a psychological assistant be called. One was on the floor and followed the request to get an H&H as soon as possible r/t active bleeding. An approximately 4 gram clot was observed in one of the pt's voidings and ayad red blood, likely vaginal. She had no complaints of pain or dizziness while following directions to take her time during position changes.
[2020-12-04 08:30] LABS: Alanine Aminotransferase 12 U/L (4-35); Alkaline Phosphatase 132 U/L (38-126); Anion Gap 0 mmol/L (8-16); Aspartate Amino Transferase 16 U/L (14-36); Bilirubin,Total 0.1 mg/dL (0.2-1.3); Blood Urea Nitrogen 6 mg/dL (7-17); Carbon Dioxide 20 mmol/L (22-30); Chloride 113 mmol/L (98-107); Estimated CRCL calculation 120 ml/min; Estimated Glomerular Filt Rate > 60; Glucose 89 mg/dL (65-110); Potassium 4.1 mmol/L (3.4-5.0); Sodium 133 mmol/L (137-145)
[2020-12-04] MEDS: TRANEXAMIC ACID 1,000MG/ISO100 1,000 MG/100 ML BAG 200 MG IVPB (10:14)
[2020-12-04] MEDS: CHOLECALCIFEROL 1,000 UNITS TABLET 1000 UNITS PO (10:15)
[2020-12-04] MEDS: ESCITALOPRAM OXALATE 10 MG TABLET PO (10:15)
[2020-12-04] MEDS: PANTOPRAZOLE 40 MG TABLET PO (10:15)
[2020-12-04] MEDS: LORATADINE 10 MG TABLET PO (10:15)
[2020-12-04 12:58] LABS: Hematocrit 31.7 % (37.0-47.0); Hemoglobin 10.2 g/dL (12.0-15.0)
== END 2020-12-04 15:14 | disposition home or self-care (01) ==
LOC: ANHED 18:18 → ANH3MEDSUR 21:18
PROVIDERS: Emergency Medicine; Internal Medicine; Admitting Provider Obstetrics & Gynecology; Emergency Provider Nurse Practitioner; PCP Family Medicine; Visit Provider Obstetrics & Gynecology
DX: D62 Acute posthemorrhagic anemia (principal); N93.9 Abnormal uterine and vaginal bleeding, unspecified; R79.89 Other specified abnormal findings of blood chemistry; I95.9 Hypotension, unspecified; F41.8 Other specified anxiety disorders; R53.82 Chronic fatigue, unspecified; E07.9 Disorder of thyroid, unspecified; K59.00 Constipation, unspecified
CPT/HCPCS: 36415; 71046; 76856; 80053; 81001; 81025; 83605; 83690; 84439; 84443; 84484; 85014; 85018; 85025; 85380; 85610; 85730; 86850; 86900; 86901; 93005; 96361; 96365; 99285; A9270; G0378; J7030

== ENCOUNTER 2021-03-14 08:19 | Outpatient (CLI) | payer BC, OTHER, SELFPAY ==
--- NOTE | ~2021-03-14 | XR_ITS ---
EXAMINATION: XR abdomen/kub 1V EXAM DATE: 03/14/2021 08:46 INDICATION: Right ureteral calculus. TECHNIQUE: Frontal projection of the upper abdomen, frontal projection lower abdomen/pelvis for inter pretation. Comparison is made to prior examination from 06/30/2020. FINDINGS: Punctate right pelvic calcification unchanged, probably phlebolith. Expected amount of colo janine stool. Nonobstructive bowel gas pattern. Mild hip primary osteoarthritis. IMPRESSION: No suspicious calcifications identified. Reviewed, dictated and finalized at location A. MEDICATION
== END 2021-03-14 08:20 | disposition home or self-care (01) ==
LOC: ANHIMG 08:22
PROVIDERS: PCP Family Medicine; Visit Provider Urology
DX: N20.1 Calculus of ureter (principal)
CPT/HCPCS: 74018

== ENCOUNTER 2023-07-09 01:44 | Day surgery (SDC) | payer BC, OTHER, SELFPAY ==
[2023-07-02 10:25] VITALS: BMI 28.3
--- NOTE | 2023-07-07 10:29 | SUR.PREOP ---
Patient called regarding upcoming procedure. Voicemail left regarding appointment times.
[2023-07-09 11:53] VITALS: BP 127/69; PULSE 96; RESP 18; TEMP 36.2; O2SAT 100; BMI 34.9
--- NOTE | 2023-07-09 11:54 | WPDANESEPPF ---
Anes - Initial Pre Proc Eval Procedure: Operation Date: 07/09/23 13:00 Proposed Procedures p Esophagogastroduodenoscopy & Screening Colonoscopy - Gautam Enriquez MD Date/Time: 07/09/23 11:54 Surgeon: Gautam Enriquez MD Pre Op Diagnosis: GERD,hx colon polyps,Fam hx colon ca Patient Data Age: 52 Gender: F Height: 1.65 m Weight: 77.2 kg Allergies Allergy/AdvReac Type Severity Reaction Status Date / Time cefprozil Allergy Severe UNKNOWN Verified 07/09/23 11:51 magnesium citrate Allergy Severe Hives Verified 07/09/23 11:51 amoxicillin AdvReac Intermediate WORSENING Verified 07/09/23 11:51 SYMPTOMS Home Medications Medication Instructions Recorded Confirmed Type Vitamin D3 25 mcg PO DAILY 12/03/20 07/02/23 History thyroid (pork) 180 mg tablet 180 mg PO DAILY 10/25/21 07/02/23 History ([place] Thyroid) famotidine 20 mg tablet See Rx Instructions .Route 06/05/23 07/02/23 Rx .COMPLEX #90 tabs omeprazole 20 mg capsule,delayed 20 mg PO DAILY #90 caps 06/05/23 07/02/23 Rx release Cerine 100 mg PO DAILY 07/02/23 07/02/23 History Dim Plus 1 cap PO DAILY 07/02/23 07/02/23 History M-Ibcagt-T-Cysteine 600 mg PO DAILY 07/02/23 07/02/23 History amitriptyline 10 mg tablet 20 mg PO HS 07/02/23 07/02/23 History escitalopram oxalate 10 mg tablet 10 mg PO DAILY 07/02/23 07/02/23 History s-adenosylmethionine 200 mg tablet 200 mg PO DAILY 07/02/23 07/02/23 History ([place]-e) spironolactone 100 mg tablet 100 mg PO DAILY 07/02/23 07/02/23 History vitamin B complex 1 tablet PO DAILY 07/02/23 07/02/23 History Patient hx anesthesia problems: none Family hx anesthesia problems: none Results Review: All pre-operative results and documents have been reviewed as part of the pre-operative evaluation. [facility] Past Medical History Medical History (Updated 06/05/23 @ 11:04 by Yari M. Andrea, FOOD CHECKER) Anxiety Chronic fatigue Depression Family history of malignant neoplasm of colon Gastroesophageal reflux disease History of adenomatous polyp of colon Microcytosis NAFLD (nonalcoholic fatty liver disease) Thyroid disease Surgical History Surgical History (Updated 06/05/23 @ 09:50 by Maulik Almendarez) H/O vaginal hysterectomy Family History Family History Mother No pertinent past medical history Social History Social History Smoking status: Never smoker Alcohol intake: current Alcohol use details: rarely Substance use: never Substance use type: does not use Living arrangements: with family Gender identity (if verbalized by the patient): Female Sexual Orientation (if Verbalized by the Patient): Straight or Heterosexual Spiritual care concerns: No Anes - Eval Final PreProcedure Day of Procedure 07/09/23 11:54 Patient weight: normal Heart: regular rate and rhythm Lungs: clear to auscultation Airway: Mallampati scale class II Neurological: alert and oriented Last oral intake: >/= 8 hours ASA classification: III Emergent: no Anesthetic plan: proceed Anesthesia type and monitoring: general GIVS and standard monitoring Results Review: All pre-operative results and documents have been reviewed as part of the pre-operative evaluation. Informed Consent: The patient's anesthetic plan and its attendant risks and benefits were discussed with the patient/family/POA. Questions were solicited and answers provided to the satisfaction of the patient/family/POA.
[2023-07-09] MEDS: LACTATED RINGERS 1,000 ML 150 ML IV CONT (11:57)
--- NOTE | 2023-07-09 12:23 | PM.HPGS ---
History of Present Illness History of Present Illness Consent: Risks, benefits, and alternatives have been discussed and questions answered. Patient agrees to proceed with procedure. Chief complaint: GERD,hx colon polyps,Fam hx colon ca Narrative: Suzie Ruth is a 52 year old female here for egd and colonoscopy, last one 2018 with polyp, gerd well controlled with omeprazole and famotidine but never had egd Review of Systems Review of Systems: All systems reviewed & are unremarkable except as noted in HPI and below PMFSH Past Medical History Medical History (Updated 06/05/23 @ 11:04 by Yari Mendez, RAMESH) Anxiety Chronic fatigue Depression Family history of malignant neoplasm of colon Gastroesophageal reflux disease History of adenomatous polyp of colon Microcytosis NAFLD (nonalcoholic fatty liver disease) Thyroid disease Surgical History Surgical History (Updated 06/05/23 @ 09:50 by Maulik Almendarez) H/O vaginal hysterectomy Family History Family History Mother No pertinent past medical history Social History Social History Smoking status: Never smoker Alcohol intake: current Alcohol use details: rarely Substance use: never Substance use type: does not use Living arrangements: with family Gender identity (if verbalized by the patient): Female Sexual Orientation (if Verbalized by the Patient): Straight or Heterosexual Spiritual care concerns: No Meds Home Medications and Allergies Home Medications Medication Instructions Recorded Confirmed Type Vitamin D3 25 mcg PO DAILY 12/03/20 07/02/23 History thyroid (pork) 180 mg tablet 180 mg PO DAILY 10/25/21 07/02/23 History ([place] Thyroid) famotidine 20 mg tablet See Rx Instructions .Route 06/05/23 07/02/23 Rx .COMPLEX #90 tabs omeprazole 20 mg capsule,delayed 20 mg PO DAILY #90 caps 06/05/23 07/02/23 Rx release Cerine 100 mg PO DAILY 07/02/23 07/02/23 History Dim Plus 1 cap PO DAILY 07/02/23 07/02/23 History G-Kuvnrd-T-Cysteine 600 mg PO DAILY 07/02/23 07/02/23 History amitriptyline 10 mg tablet 20 mg PO HS 07/02/23 07/02/23 History escitalopram oxalate 10 mg tablet 10 mg PO DAILY 07/02/23 07/02/23 History s-adenosylmethionine 200 mg tablet 200 mg PO DAILY 07/02/23 07/02/23 History ([place]-e) spironolactone 100 mg tablet 100 mg PO DAILY 07/02/23 07/02/23 History vitamin B complex 1 tablet PO DAILY 07/02/23 07/02/23 History Allergies Allergy/AdvReac Type Severity Reaction Status Date / Time cefprozil Allergy Severe UNKNOWN Verified 07/09/23 11:51 magnesium citrate Allergy Severe Hives Verified 07/09/23 11:51 amoxicillin AdvReac Intermediate WORSENING Verified 07/09/23 11:51 SYMPTOMS Vital Signs Vital Signs - 24 hr 07/09/23 11:53 Temperature 97.2 F L Pulse Rate 96 Respiratory Rate 18 Blood Pressure 127/69 Pulse Oximetry 100 Oxygen Delivery Room Air Exam Const: General: comfortable and no acute distress HENMT: Face/Nose/Sinus: Normal nares present Eyes: General: appearance normal, both eyes and all related structures Neck: Neck: no JVD Resp: Auscultation: clear to auscultation bilaterally Cardio: Rate: regular rate Rhythm: regular rhythm GI: Inspection: non-distended GI Palp: Yes Soft to palpation Skin: General skin exam: normal color Neuro: General: gait normal Speech: normal speech Extrem: General: normal to inspection Psych: Mental Status: mental status grossly normal Assessment and Plan Assessment and plan (1) Gastroesophageal reflux disease: Code(s): K21.9 - Gastro-esophageal reflux disease without esophagitis Status: Acute Assessment and Plan: egd with bx (2) History of adenomatous polyp of colon: Code(s): Z86.010 - Personal history of colonic polyps Status: Acute Assessment and Plan: colonoscopy
--- NOTE | 2023-07-09 12:38 | SUR.OPER ---
EGD: [id number] COLON: Start 1238
[2023-07-09 12:50] VITALS: BP 98/64; PULSE 96; RESP 20; O2SAT 98
[2023-07-09 13:00] VITALS: BP 111/64; PULSE 90; RESP 17; O2SAT 100
[2023-07-09 13:10] VITALS: BP 108/49; PULSE 90; RESP 17; O2SAT 100
== END 2023-07-09 13:18 | disposition home or self-care (01) ==
PROVIDERS: PCP Family Medicine; Visit Provider Internal Medicine Gastroenterology
PROC: 0DJ08ZZ Inspection of Upper Intestinal Tract, Via Natural or Artificial Opening Endoscopic (ICD-10-PCS; CPT 43235; principal; 2023-07-09 13:00)
DX: Z12.11 Encounter for screening for malignant neoplasm of colon (principal); D12.3 Benign neoplasm of transverse colon; K64.8 Other hemorrhoids; K21.00 Gastro-esophageal reflux disease with esophagitis, without bleeding; K44.9 Diaphragmatic hernia without obstruction or gangrene; Z80.0 Family history of malignant neoplasm of digestive organs; K75.81 Nonalcoholic steatohepatitis (NASH); F41.9 Anxiety disorder, unspecified; F32.A Depression, unspecified; E07.9 Disorder of thyroid, unspecified
CPT/HCPCS: 45385; 43239; 88305; J2704; J7120

== ENCOUNTER 2023-07-25 16:16 | Emergency (ER) | payer BC, OTHER, SELFPAY ==
[2023-07-25 16:17] VITALS: BP 146/85; PULSE 96; RESP 20; TEMP 36.6; O2SAT 100
[2023-07-25 16:55] LABS: Basophils Absolute Auto 0.1 K/mm3 (0.0-0.1); Basophils Percent Auto 0.6 % (0.2-1.2); Eosinophils Absolute Auto 0.1 K/mm3 (0-0.3); Eosinophils Percent Auto 0.7 % (0-4.4); Hematocrit 46.8 % (37.0-47.0); Immature Granulocyte Absolute 0.01 K/mm3 (0.00-0.031); Immature Granulocyte Percent A 0.1 % (0-0.5); Lymphocytes Absolute Auto 2.91 K/mm3 (0.9-3.2); Lymphocytes Percent Auto 27.3 % (18.3-44.2); Mean Corpuscular HGB Conc 32.1 g/dl (32-36); Mean Corpuscular Hemoglobin 27.7 pg (26-34); Mean Corpuscular Volume 86.3 fl (80-100); Mean Platelet Volume 9.5 fl (7.4-10.4); Monocytes Absolute Auto 0.6 K/mm3 (0.1-0.6); Monocytes Percent Auto 5.8 % (2.6-8.5); Neutrophils Percent Auto 65.5 % (45.5-73.1); Platelet Count Result 343 k/mm3 (150-375); Red Blood Count 5.42 M/mm3 (4.2-5.4); Red Cell Distribution Width 13.2 % (11.5-14.5); White Blood Count 10.6 K/mm3 (4.5-10.0)
[2023-07-25 17:08] LABS: Ethanol < 10 mg/dL (<10)
[2023-07-25 17:11] LABS: Alanine Aminotransferase 20 U/L (6-35); Albumin Level 4.7 g/dL (3.5-5.1); Alkaline Phosphatase 114 U/L (38-126); Anion Gap 8 mmol/L (4-12); Aspartate Amino Transferase 25 U/L (14-36); Bilirubin,Total 0.4 mg/dL (0.2-1.3); Blood Urea Nitrogen 12 mg/dL (7-17); Calcium 9.9 mg/dL (8.4-10.2); Carbon Dioxide 26 mmol/L (22-30); Chloride 103 mmol/L (98-107); Estimated CRCL calculation 84 ml/min; Estimated Glomerular Filt Rate > 60; Glucose 114 mg/dL (65-110); Potassium 4.1 mmol/L (3.4-5.0); Sodium 137 mmol/L (137-145)
[2023-07-25 17:40] LABS: Influenza A QL RT-PCR Negative (Negative); Influenza B QL RT-PCR Negative (Negative); RSV RNA, RT-PCR Negative (Negative); SARS-CoV-2 RNA PCR Negative (Negative)
[2023-07-25 18:03] LABS: Thyroid Stimulating Hormone Reflex < 0.015 uIU/mL (0.465-4.68)
[2023-07-25 18:05] LABS: Appearance Urine Clear (Clear); Bilirubin Urine Negative (Negative); Blood Urine Negative (Negative); Color Urine Yellow (Yellow); Glucose Urine UA Negative (Negative); Ketones Urine Negative (Negative); Leukocyte Esterase Ur Negative LEU/UL (Negative); Nitrate Urine Negative (Negative); Protein Urine Negative (Negative); Specific Grav Ur 1.016 (1.001-1.035); Urobilinogen Urine 0.2 mg/dL (<2.0); pH Urine 6.5 (5.0-9.0)
--- NOTE | 2023-07-25 18:11 | ECG_ITS ---
Measurements Intervals [place] Rate: 91 P: 30 KS: 129 QRS: 41 QRSD: 72 T: 40 QT: 330 QTc: 407 Interpretive Statements SINUS RHYTHM COMPARED TO ECG 12/03/2020 15:20:01 NO SIGNIFICANT CHANGES Electronically Signed On 07-26-2023 13:24:05 CDT by Tyrone Alcala M.D.
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
[2023-07-25 18:20] LABS: Amphetamine Screen Urine Negative (Negative); Barbiturate Screen Urine Negative (Negative); Benzodiazepines Screen Urine Negative (Negative); Cannabinoid Screen Urine Negative (Negative); Cocaine Screen Urine Negative (Negative); Methadone Screen Urine Negative (Negative); Opiate Screen Urine Negative (Negative); Phencyclidine Screen Urine Negative (Negative)
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
[2023-07-25 18:58] LABS: Add Urine Microscopic? NO
[2023-07-25 19:41] LABS: Free T4 Free Thyroxine Reflex 1.49 ng/dL (0.78-2.19)
[2023-07-25 20:25] LABS: Total Triiodothyronine (T3) 2.06 NG/ML (0.97-1.69)
--- NOTE | 2023-07-25 21:45 | PC.NURSE ---
called for update.
--- NOTE | 2023-07-26 02:09 | PC.NURSE ---
Ruth called stating Dr. Jc has accepted the patient. Ruth RN will call back to get report and give a bed number.
== END 2023-07-26 04:23 ==
PROVIDERS: Emergency Medicine; Emergency Provider Emergency Medicine; PCP Family Medicine
DX: R45.851 Suicidal ideations (principal); F41.8 Other specified anxiety disorders; E07.9 Disorder of thyroid, unspecified; K21.9 Gastro-esophageal reflux disease without esophagitis; Z20.822 Contact with and (suspected) exposure to COVID-19
CPT/HCPCS: 36415; 80053; 80307; 81003; 81025; 84439; 84443; 84480; 85025; 87637; 93005; 99285